=== PATIENT | male | born 1945 | race Caucasian/White ===

== ENCOUNTER 2021-04-22 10:38 | Inpatient (IN) | payer OTHER ==
[~2021-04-22] VITALS: Ht 172.7 cm; Wt 77.1 kg
[2021-04-22 11:23] LABS: HEMOGLOBIN 18.1 gm/dl (14.0-17.5); RED BLOOD COUNT 5.98 M/UL (4.20-5.50); WHITE BLOOD COUNT 19.8 K/UL (4.5-11.0)
[2021-04-22 11:42] LABS: BUN/CREATININE RATIO 12 (0-10)
--- NOTE | 2021-04-22 16:49 | NUR ---
1430: UNABLE TO ENTER PATIENTS PHARMACY. PATIENT LIVES IN [place], [place]. PATIENTS PHARMACY IS [facility] [address] [place] [address], [place], [place] PHONE [phone]. RN ENTEREND PHARMACY NAME AND NUMBER ONLY, WHEN ADMISSION COMPLETED.
[2021-04-22 17:16] LABS: ADENOVIRUS F 40/41 Not Detected (Negative); ASTROVIRUS Not Detected (Negative); CAMPYLOBACTER Not Detected (Negative); CLOSTRIDIUM DIFFICILE TOX A/B Not Detected (Negative); CRYPTOSPORIDIUM Not Detected (Negative); E.COLI 0157 Not Detected (Negative); ENTAMOEBA HISTOLYTICA Not Detected (Negative); ENTEROAGGREGATIVE E.COLI (EAEC Not Detected (Negative); ENTEROPATHOGENIC E.COLI (EPEC) Not Detected (Negative); ENTEROTOXIGENIC E.COLI (ETEC) Not Detected (Negative); GIARDIA LAMBLIA Not Detected (Negative); NOROVIRUS GI/GII Not Detected (Negative); PLESIOMONAS SHIGELLOIDES Not Detected (Negative); ROTOVIRUS A Not Detected (Negative); SALMONELLA Not Detected (Negative); SAPOVIRUS Not Detected (Negative); SHIG/ENTEROINVAS.ECOLI (EIEC) Not Detected (Negative); SHIGA-LIK TOX.PRO.E.COLI (STEC Not Detected (Negative); VIBRIO Not Detected (Negative); VIBRIO CHOLERAE Not Detected (Negative); YERSINIA ENTEROCOLITICA Not Detected (Negative)
[2021-04-23 04:35] LABS: HEMOGLOBIN 12.5 gm/dl (14.0-17.5); RED BLOOD COUNT 4.25 M/UL (4.20-5.50)
[2021-04-23] MEDS ORDERED: CLOPIDOGREL75 MG PO (10:33)
[2021-04-23] MEDS ORDERED: FENOFIBRATE160 MG PO (10:33)
[2021-04-23] MEDS ORDERED: AMARYL4 MG PO (10:34)
[2021-04-23] MEDS ORDERED: LEVOTHYROXINE150 MC1 PO (10:34)
[2021-04-23] MEDS ORDERED: TRULICITY3 MG/0.5 M SQ (10:34)
[2021-04-23] MEDS ORDERED: VITAMIN D21250 MCG PO (10:35)
[2021-04-23] MEDS ORDERED: LINZESS145 MCG PO (10:35)
[2021-04-23] MEDS ORDERED: PROTONIX40 MG PO (10:35)
[2021-04-23] MEDS ORDERED: GAS RELIEF80 MG PO (10:36)
[2021-04-23] MEDS ORDERED: METAMUCIL FIBE3.4 GM PO (12:28)
[2021-04-23] MEDS ORDERED: ASPIRIN81 MG PO (12:28)
[2021-04-24 01:00] LABS: ACINETOBACTER BAUMANNII Not Detected (Negative); CANDIDA ALBICANS Not Detected (Negative); CANDIDA KRUSEI Not Detected (Negative); CANDIDA TROPICALIS Not Detected (Negative); ENTEROCOCCUS Not Detected (Negative); ESCHERICHIA COLI Not Detected (Negative); HAEMOPHILUS INFLUENZAE Not Detected (Negative); KLEBSIELLA OXYTOCA Not Detected (Negative); KLEBSIELLA PNEUMONIAE Not Detected (Negative); KPC-CARBAPENEM-RESISTANCE GENE Not Detected (Negative); PROTEUS Not Detected (Negative); PSEUDOMONAS AERUGINOSA Not Detected (Negative); SERRATIA MARCESANS Not Detected (Negative); STAPHYLOCOCCUS AUREUS Not Detected (Negative); STREP AGALACTIAE (GROUP B) Not Detected (Negative); STREP PYOGENES (GROUP A) Not Detected (Negative); STREPTOCOCCUS Not Detected (Negative); mecA (METHICILLIN RESIST GENE Not Detected (Negative); vanA/B (VANCOMYCIN RESIST GENE Not Detected (Negative)
[2021-04-24 01:01] LABS: STAPHYLOCOCCUS DETECTED (Negative)
[2021-04-24 03:49] LABS: HEMOGLOBIN 11.8 gm/dl (14.0-17.5); RED BLOOD COUNT 4.04 M/UL (4.20-5.50)
[2021-04-24 04:06] LABS: BUN/CREATININE RATIO 13 (0-10)
[2021-04-24 04:10] LABS: WHITE BLOOD COUNT 7.9 K/UL (4.5-11.0)
[2021-04-25 06:55] LABS: HEMOGLOBIN 12.3 gm/dl (14.0-17.5); RED BLOOD COUNT 4.17 M/UL (4.20-5.50); WHITE BLOOD COUNT 7.2 K/UL (4.5-11.0)
[2021-04-25 07:41] LABS: BUN/CREATININE RATIO 11 (0-10)
[2021-04-25] MEDS ORDERED: FLORANEX GRANU1 EACH PO (09:10)
[2021-04-25] MEDS ORDERED: FLAGYL500 MG PO (09:10)
[2021-04-25] MEDS ORDERED: PROCTOCREAM-HC30 G1 TOP (09:10)
[2021-04-25] MEDS ORDERED: LEVOFLOXACIN500 MG PO (09:10)
[2021-04-25] MEDS ORDERED: KLOR-CON 1010 MEQ PO (09:10)
[2021-04-25] MEDS ORDERED: K-TAB ER20 MEQ PO (09:19)
[2021-04-25] MEDS ORDERED: ZOFRAN 4 MG TAB4 MG PO (09:34)
== END 2021-04-25 11:49 | disposition home or self-care (01) | DRG 872 ==
LOC: ER1 10:38 → CDU 13:21 → MED SURG 4 13:21
PROVIDERS: Emergency Medicine; Physician Assistant; ADMIT Internal Medicine
DX: A41.9 Sepsis, unspecified organism (principal); N17.9 Acute kidney failure, unspecified; E87.2 Acidosis; R65.20 Severe sepsis without septic shock; K52.9 Noninfective gastroenteritis and colitis, unspecified; E86.0 Dehydration; E87.6 Hypokalemia; R91.1 Solitary pulmonary nodule; K64.9 Unspecified hemorrhoids; K21.9 Gastro-esophageal reflux disease without esophagitis; I65.21 Occlusion and stenosis of right carotid artery; I25.10 Atherosclerotic heart disease of native coronary artery without angina pectoris; E11.51 Type 2 diabetes mellitus with diabetic peripheral angiopathy without gangrene; E78.5 Hyperlipidemia, unspecified; Z85.46 Personal history of malignant neoplasm of prostate; Z95.1 Presence of aortocoronary bypass graft; Z79.82 Long term (current) use of aspirin; Z98.890 Other specified postprocedural states; Z87.891 Personal history of nicotine dependence; Z80.0 Family history of malignant neoplasm of digestive organs; Z79.899 Other long term (current) drug therapy
CPT/HCPCS: 36415; 80048; 80053; 81001; 82550; 82553; 82803; 82962; 83605; 83690; 83874; 84484; 85025; 87040; 87045; 87046; 87077; 87150; 87186; 87449; 87507; 93005; 96374; 96375; 99285; J1650; J1956; J2270; J2405; J2543; J3370; J7030; J7070; Q9967; U0002